=== PATIENT | female | born 1940 | race Caucasian/White ===

== ENCOUNTER 2019-10-22 09:34 | Outpatient (CLI) | payer MEDICARE, OTHER, SELFPAY ==
--- NOTE | 2019-10-22 09:43 | MM_ITS ---
WS: [id number] BILATERAL DIGITAL SCREENING MAMMOGRAPHY WITH CAD CLINICAL INFORMATION: SCREENING HISTORY: Screening mammogram. No current complaints. COMPARISON: TECHNIQUE: Bilateral CC and MLO views. FINDINGS: The breasts are composed of heterogeneous fibroglandular density tissue, which can limit the detectio n of small underlying mass lesions. No suspicious mass, asymmetry, calcifications, or architectural d istortion. No evidence of malignancy. Punctate and lucent calcifications. Vascular calcification. MM/[id number] IMPRESSION: BI-RADS: 2-Benign FOLLOW UP: 1 Year Follow-up Recommend return to annual screening mammography.
== END 2019-10-22 09:35 | disposition home or self-care (01) ==
LOC: RADSHAW 09:41
PROVIDERS: PCP Physician Assistant; Visit Provider Physician Assistant
DX: Z12.31 Encounter for screening mammogram for malignant neoplasm of breast (principal)
CPT/HCPCS: 77067

== ENCOUNTER 2020-11-24 10:34 | Outpatient (CLI) | payer MEDICARE, OTHER, SELFPAY ==
--- NOTE | 2020-11-24 10:42 | MM_ITS ---
WS: [id number] BILATERAL SCREENING DIGITAL MAMMOGRAM WITH CAD HISTORY: SCREENING COMPARISON: 10/22/2019 and 10/17/2018 Bilateral CC and MLO views submitted. Computer aided detection analyzed. Breast composition: The breasts are heterogeneously dense, which may obscure small masses. No suspici ous masses, microcalcifications or architectural distortion. Benign calcifications in each breast. MM/[id number] IMPRESSION: BI-RADS: 2-Benign FOLLOW UP: 1 Year Follow-up
--- NOTE | 2020-11-24 11:25 | XR_ITS ---
WS: [id number] DEXA (DUAL ENERGY X-RAY ABSORPTIOMETRY) Bone mineral density was performed using a Jamplify machine. HISTORY: POST MENOPAUSAL COMPARISON: 09/25/2017 Lumbar spine BMD (L1-L4): 1.816 g/cm2 T score: 5.3 Z score: 6.7 Total hip BMD: Left: 0.889 g/cm2. T score: -0.9 Z score: 0.9 Right: 0.856 g/cm2. T score: -1.2 Z score: 0.6 10 year probability of a major osteoporotic fracture is 20%. Compared to the prior study from 09/25/2017. Lumbar spine bone mineral density has decreased by 0.8%. Bilateral hips bone mineral density has decreased by 2.2%. XR/XR DEXA axial skeleton* [id number] IMPRESSION: OSTEOPENIA based upon the WHO classification for females. Significant decrease in bone mineral density within the hips since the prior .
== END 2020-11-24 10:35 | disposition home or self-care (01) ==
LOC: RADSHAW 10:41
PROVIDERS: PCP Physician Assistant; Visit Provider Physician Assistant
DX: Z12.31 Encounter for screening mammogram for malignant neoplasm of breast (principal); Z78.0 Asymptomatic menopausal state; M85.88 Other specified disorders of bone density and structure, other site
CPT/HCPCS: 77067; 77080

== ENCOUNTER → 2021-10-21 08:52 | Outpatient (BNVA) | payer MEDICARE, OTHER, SELFPAY | PROVIDERS: PCP Physician Assistant; Visit Provider Nurse Practitioner Family | DX: I25.10 Atherosclerotic heart disease of native coronary artery without angina pectoris (principal) | CPT/HCPCS: 99213 ==

== ENCOUNTER 2021-11-26 10:08 | Outpatient (CLI) | payer MEDICARE, OTHER, SELFPAY ==
--- NOTE | 2021-11-26 10:19 | MM_ITS ---
WS: [id number] Bilateral screening 3D tomosynthesis digital mammogram, 11/26/2021 Clinical Data: SCREENING Comparison: 11/24/2020, 10/22/2019, 10/17/2018, 09/25/2017, 09/21/2016, 09/18/2015, 09/08/2014, 03/09/2011. Findings: The breast parenchymal pattern shows heterogeneous density. No spiculated masses or clustered calcifi cations are seen. There are no secondary signs of carcinoma. MM/[place] [id number] Impression: 1. Negative bilateral mammogram unchanged. 2. Recommend annual screening mammograms. BIRADS: 1-Negative FOLLOW UP: 1 Year Follow-up The CAD sample checker was used.
== END 2021-11-26 10:09 | disposition home or self-care (01) ==
LOC: RAD 10:11
PROVIDERS: PCP Physician Assistant; Visit Provider Physician Assistant
DX: Z12.31 Encounter for screening mammogram for malignant neoplasm of breast (principal)
CPT/HCPCS: 77063; 77067

== ENCOUNTER 2022-05-21 15:07 | Emergency (ER) | payer MEDICARE, OTHER, SELFPAY ==
[2022-05-21 15:10] VITALS: BP 219/71; PULSE 85; RESP 18; TEMP 36.7; O2SAT 97
--- NOTE | 2022-05-21 15:16 | XRR_ITS ---
PROCEDURE INFORMATION: Exam: XR Chest Exam date and time: 05/21/2022 3:44 PM Age: 82 years old Clinical indication: Patient HX: PT C/O chest pain; Additional info: Cp TECHNIQUE: Imaging protocol: Radiologic exam of the chest. Views: 1 view. COMPARISON: CR XR chest 2V* [id number] 12/20/2018 10:21 AM FINDINGS: Lungs: Unremarkable. No consolidation. Pleural spaces: Unremarkable. No pleural effusion. No pneumothorax. Heart/Mediastinum: Possible mild cardiomegaly. Vasculature: Calcified plaque in the thoracic aorta similar to the prior study. Bones/joints: Unremarkable. XR/XR chest 1V portable [id number] IMPRESSION: Possible mild cardiomegaly.Heart size not optimally evaluated with a single AP view of the chest.
--- NOTE | 2022-05-21 15:16 | ED_ITS ---
HPI - Chest Pain General: Chief Complaint: Chest Pain Stated Complaint: UC sent for high BP, chest tightness Time Seen by Provider: 05/21/22 15:16 History of Present Illness: Ms. Meier is an 82-year-old lady with history of CAD, thyroid disorder, GERD presented to the emergency department for chest discomfort and generalized malaise. She reports onset of symptoms yesterday during exertion. She describes just a fullness or discomfort in her chest and epigastric region associated with generalized unwellness. Overall course of symptoms symptoms persisted. Denies other focal infectious symptoms. No other specific changes in health, exacerbating, or alleviating factors identified. Onset (ago): day(s) Timing of current episode: constant Onset: during exertion Pain location: substernal Pain radiation: abdomen Severity: moderate Quality: other Relieving factors: nothing Exacerbating factors: nothing Associated symptoms: Reports other Review of Systems General: Reports: 10 or more systems reviewed and unremarkable except in HPI and below PFSH ED PFSH: Medical History Abnormal stress test CAD (coronary artery disease) GERD (gastroesophageal reflux disease) Hypothyroidism Family History Other Cancer Diabetes Family history of cardiomegaly Stroke Social History Smoking and tobacco status: former smoker Alcohol intake: current Alcohol intake frequency: holidays/special occasions only Physical Exam Const: COMMON NORMALS: alert GENERAL APPEARANCE: cooperative and well developed HENMT: COMMON NORMALS: normocephalic and atraumatic HEAD & SCALP: normocephalic and atraumatic Eye: COMMON NORMALS: conjunctivae normal CONJUNCTIVA: Yes conjunctivae normal SCLERA: sclerae normal Neck/C-Spine: COMMON NORMALS: supple GENERAL: Yes trachea midline Resp: COMMON NORMALS: clear to auscultation bilaterally EFFORT & INSPECTION: Yes able to speak in complete sentences AUSCULTATION: clear to auscultation bilaterally Cardio: COMMON NORMALS: regular rate and regular rhythm RATE: regular rate RHYTHM: regular rhythm GI: COMMON NORMALS: Soft to palpation PALPATION: Yes Soft to palpation and No Tenderness to palpation present (GI) Extremity: GENERAL: Yes normal exam except as noted and No edema Neuro: COMMON NORMALS: moves all extremities SENSORIUM/ORIENTATION: Yes a lert and No Orientation impaired Psych: COMMON NORMALS: mental status grossly normal and Normal thought process present THOUGHT PROCESS: Normal thought process present Course 2 Vital Signs: Vital signs: Vital Signs Temperature 98.1 F 05/21/22 15:10 Pulse Rate 89 05/21/22 18:30 Respiratory Rate 16 05/21/22 17:45 Blood Pressure 165/57 05/21/22 18:30 Pulse Oximetry 97 05/21/22 18:30 Oxygen Delivery Me thod 05/21/22 18:30 MDM - Chest Pain Medical Decision Making 82-year-old lady presenting with epigastric and chest discomfort. Nontoxic on exam. EKG demonstrates sinus rhythm with first-degree AV block, normal axis, no STEMI. Labs with no significant hematologic abnormalities but mild hyponatremia and dehydration metabolic panel. Negative range 2-hour delta troponin. No UTI. Chest x-ray with no lobar consolidation or pneumothorax. Patient treated with fluids, Toradol, aspirin and feels improved. Most likely etiology of symptoms is dehydration and unspecified chest pain. The results of ED evaluation were discussed with the patient including possible disposition options. I discussed risk stratification by heart score and e stimated risk of major adverse cardiac events. The patient wishes to proceed with outpatient management. I discussed prescriptions and/or symptomatic cares (if applicable) including appropriate and responsible use, followup plan, and return precautions. The patient verbalized understanding and felt safe for discharge. Medical Records I reviewed the patient's medical records. Lab Data I reviewed the patient's lab results. 05/21/22 15:35 05/21/22 15:35 Radiology Impressions Chest X-Ray 05/21/22 15:16 IMPRESSION: Possible mild cardiomegaly.Heart size not optimally evaluated with a single AP view of the chest. Laboratory Results WBC 6.5 10^3/uL (4.0-10.0) 05/21/22 15:35 RBC 3.94 10^6/uL (4.1-5.3) L 05/21/22 15:35 Hgb 12.6 g/dL (11.5-15.3) 05/21/22 15:35 Hct 39.2 % (37.0-47.0) 05/21/22 15:35 MCV 99.5 fl (81-99) H 05/21/22 15:35 MCH 32.0 pg (28.0-34.0) 05/21/22 15:35 MCHC 32.1 g/dL (30.0-36.0) 05/21/22 15:35 RDW 12.7 % (12.1-15.1) 05/21/22 15:35 Plt Count 201 10^3/cmm (130-400) 05/21/22 15:35 MPV 10.7 fL (7.4-10.4) H 05/21/22 15:35 Neut % (Auto) 49.8 % 05/21/22 15:35 Lymph % (Auto) 36.1 % 05/21/22 15:35 [place] % (Auto) 11.3 % 05/21/22 15:35 Eos % (Auto) 2.1 % 05/21/22 15:35 Baso % (Auto) 0.5 % 05/21/22 15:35 Neut # (Auto) 3.26 10^3/uL (1.8-7.7) 05/21/22 15:35 Lymph # (Auto) 2.4 10^3/uL (0.8-4.8) 05/21/22 15:35 [place] # (Auto) 0.7 10^3/uL (0.2-0.9) 05/21/22 15:35 Eos # (Auto) 0.1 10^3/uL (0.0-0.8) 05/21/22 15:35 Baso # (Auto) 0.0 10^3/uL (0.0-0.1) 05/21/22 15:35 Nucleated RBC % (auto) 0 % 05/21/22 15:35 Nucleated RBCs # 0.0 /100WBC 05/21/22 15:35 Sodium 129 mmol/L (136-145) L 05/21/22 15:35 Potassium 4.1 mmol/L (3.5-5.1) 05/21/22 15:35 Chloride 92 mmol/L (98-107) L 05/21/22 15:35 Carbon Dioxide 24 mmol/L (22-29) 05/21/22 15:35 Anion Gap 17.1 (5-19) 05/21/22 15:35 BUN 26 mg/dL (8-23) H 05/21/22 15:35 Creatinine 1.0 mg/dL (0.5-0.9) H 05/21/22 15:35 GFR Calculation Not Reportable 05/21/22 15:35 Glucose 110 mg/dL (65-115) 05/21/22 15:35 Calculated Osmolality 273 mOsm/kg (285-295) L 05/21/22 15:35 Calcium 9.7 mg/dL (8.5-10.5) 05/21/22 15:35 Total Bilirubin 0.2 mg/dL (0.15-1.2) 05/21/22 15:35 AST 23 U/L (0-32) 05/21/22 15:35 ALT 20 U/L (0-33) 05/21/22 15:35 Alkaline Phosphatase 72 U/L (35-105) 05/21/22 15:35 Troponin T Baseline 10 ng/L (0-10) 05/21/22 15:35 Troponin T 120 Minute 11.87 ng/L (0-10) H 05/21/22 17:25 Delta Troponin T 1.87 ABS# (0-10) 05/21/22 17:25 NT-Pro-B Natriuret Pep 237 pg/mL (0-450) 05/21/22 15:35 Total Protein 6.8 g/dL (6.6-8.7) 05/21/22 15:35 Albumin 4.3 g/dL (3.5-5.2) 05/21/22 15:35 Globulin 2.5 g/dL (1.3-4.6) 05/21/22 15:35 Lipase 48 U/L (13-60) 05/21/22 15:35 TSH 4.54 uIU/mL (0.27-4.20) H 05/21/22 15:35 Free T4 1.54 ng/dL (0.82-1.77) 05/21/22 17:25 Urine Color Yellow (Yellow) 05/21/22 17:36 Urine Appearance Clear (CLEAR) 05/21/22 17:36 Urine pH 6 (5-7) 05/21/22 17:36 Ur Specific Streeter 1.010 (1.005-1.030) 05/21/22 17:36 Urine Protein Neg (Negative) 05/21/22 17:36 Urine Glucose (UA) Norm (Normal) 05/21/22 17:36 Urine Ketones Negative (Negative) 05/21/22 17:36 Urine Blood Neg (Negative) 05/21/22 17:36 Urine Nitrate Negative (Negative) 05/21/22 17:36 Urine Bilirubin Neg (Negative) 05/21/22 17:36 Urine Urobilinogen Norm mg/dL (Negative) 05/21/22 17:36 Ur Leukocyte Esterase 1+ (Negative) H 05/21/22 17:36 Urine RBC None /hpf (0-2) 05/21/22 17:36 Urine WBC 5-10 /hpf (0-5) H 05/21/22 17:36 Ur Squamous Epith Cells Rare /hpf (0-5) 05/21/22 17:36 Amorphous Sediment Not Reportable 05/21/22 17:36 Urine Bacteria Trace /hpf (NONE) 05/21/22 17:36 Influenza Type A Ag negative (Negative) 05/21/22 15:47 Influenza Type B Ag negative (Negative) 05/21/22 15:47 SARS-CoV-2 Ag (Rapid) negative (Negative) 05/21/22 15:47 Discharge Plan Discharge Patient Disposition: Home Clinical Impression: Chest discomfort, Malaise and fatigue Condition: Stable Prescriptions: No Action levothyroxine 50 mcg tablet 50 mcg PO DAILY multivitamin Tablet 1 tab PO DAILY paroxetine HCl 20 mg tablet 10 mg PO DAILY diclofenac sodium 75 mg tablet,delayed release (DR/EC) 75 mg PO BID nitroglycerin 0.4 mg tablet, sublingual 0.4 mg SUBLINGUAL Q5M PRN (Reason: chest pain) Qty: 25 3RF Rx Instructions: do not exceed 3 doses per episode omeprazole 20 mg capsule,delayed release(DR/EC) 1 cap PO DAILY Cbd Gummies 1 gum PO DAILY Rx Instructions: Patient is trying this med Adult Low Dose Aspirin 81 mg tablet,delayed release (DR/EC) 162 mg PO DAILY Calcium 500 500 mg calcium (1,250 mg) Tablet 500 mg PO DAILY ProAir HFA 90 mcg/actuation HFA aerosol inhaler 2 inh INHALATION QID PRN (Reason: shortness of breath or wheezing) Discharge Orders: Discharge ED (Routine); Ordered 05/21/22 Ordered By: Vladislav Duarte Referrals: Brigida Fontaine PA [Primary Care Provider] - Discharge Diet: Usual diet Discharge Activity: Resume usual activity Patient Instructions: Chest Pain (ED), Dehydration (ED), Hyponatremia (ED) Activity Restrictions/Additional Instructions: Thank you for visiting the emergency department. You were seen and evaluated for generalized unwellness with chest discomfort. The exact cause of your symptoms is unclear as discussed. I will message case management for outpatient testing. Please ensure that you are staying hydrated. Return to the emergency department for worsening symptoms or anything else that you are concerned about and feel needs emergency department evaluation. Coding Level of Care Code ED Editor Publications for [facility] [employer]
--- NOTE | 2022-05-21 15:21 | ECG_ITS ---
[facility] Test Date: 2022-05-21 Pat Name: Keisha Meier Department: Room: Gender: Female Mysql Database Administrator: : 1940 Requested By: Vladislav Duarte Order Number: [id number] Arnie MD: Bri Vogel M.D. Measurements Intervals [place] Rate: 69 P: 54 NH: 219 QRS: 42 QRSD: 92 T: 67 QT: 383 QTc: 412 Interpretive Statements SINUS RHYTHM WITH FIRST DEGREE AV BLOCK POSSIBLE ANTERIOR MYOCARDIAL INFARCTION , OF INDETERMINATE AGE [30 ms Q WAVE IN V3/V4, OR R < 0.2 mV IN V4] INTERPRETATION BASED ON A DEFAULT AGE OF 40 YEARS No previous ECG available for comparison Electronically Signed On 05-21-2022 19:32:46 POT PUNCHER by Bri Vogel M.D. [email or web address] medical centerCodaMationbrecksville va [facility].TargetX/store/NU/[id number] f
[2022-05-21] MEDS: aspirin 81 mg Chew Tablet 324 MG PO (15:41)
[2022-05-21 15:55] VITALS: BP 182/64; PULSE 71; RESP 16; O2SAT 99
[2022-05-21 16:18] LABS: Basophils % 0.5 %; Eosinophils # 0.1 10^3/uL (0.0-0.8); Eosinophils % 2.1 %; Hematocrit 39.2 % (37.0-47.0); Hemoglobin 12.6 g/dL (11.5-15.3); Lymphocytes # 2.4 10^3/uL (0.8-4.8); Lymphocytes % 36.1 %; Mean Corpuscular HGB Conc 32.1 g/dL (30.0-36.0); Mean Corpuscular Volume 99.5 fl (81-99); Mean Platelet Volume 10.7 fL (7.4-10.4); Monocytes # 0.7 10^3/uL (0.2-0.9); Monocytes % 11.3 %; Neutrophils # 3.26 10^3/uL (1.8-7.7); Neutrophils % 49.8 %; Nucleated Red Blood Cells % 0 %; Platelet Count 201 10^3/cmm (130-400); Red Blood Count 3.94 10^6/uL (4.1-5.3); Red Cell Distribution Width 12.7 % (12.1-15.1); White Blood Count 6.5 10^3/uL (4.0-10.0)
[2022-05-21 16:24] VITALS: BP 161/54; PULSE 70; O2SAT 98
[2022-05-21 16:31] LABS: Influenza A by IFA negative (Negative); Influenza B by IFA negative (Negative); SARS Covid-2 Antigen negative (Negative)
[2022-05-21 16:48] LABS: Troponin(5th) Baseline 10 ng/L (0-10)
[2022-05-21 16:56] LABS: Alanine Aminotransferase 20 U/L (0-33); Albumin Level 4.3 g/dL (3.5-5.2); Alkaline Phosphatase 72 U/L (35-105); Anion Gap 17.1 (5-19); Aspartate Amino Transferase 23 U/L (0-32); Blood Urea Nitrogen 26 mg/dL (8-23); Calcium 9.7 mg/dL (8.5-10.5); Carbon Dioxide 24 mmol/L (22-29); Chloride 92 mmol/L (98-107); Globulin 2.5 g/dL (1.3-4.6); Glucose 110 mg/dL (65-115); Lipase 48 U/L (13-60); NT Pro B Type Natriuretic Pept 237 pg/mL (0-450); Osmolality Calculated 273 mOsm/kg (285-295); Potassium 4.1 mmol/L (3.5-5.1); Sodium 129 mmol/L (136-145); Thyroid Stimulating Hormone 4.54 uIU/mL (0.27-4.20); Total Bilirubin 0.2 mg/dL (0.15-1.2); Total Protein 6.8 g/dL (6.6-8.7)
--- NOTE | 2022-05-21 17:16 | ECG_ITS ---
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 Measurements Intervals [place] Rate: 66 P: 59 AL: 228 QRS: 54 QRSD: 91 T: 66 QT: 380 QTc: 400 Interpretive Statements SINUS RHYTHM WITH FIRST DEGREE AV BLOCK LOW QRS VOLTAGE IN PRECORDIAL LEADS [QRS DEFLECTION < 1.0 mV IN CHEST LEADS] Compared to ECG 05/21/2022 15:21:34 Low QRS voltage now present Myocardial infarct finding no longer present Electronically Signed On 05-21-2022 19:40:11 ORANGE GROWER by Bri Vogel M.D. [email or web address] hospitalAdisnmercy [facility].3rdKind/store/OM/[id number]
[2022-05-21] MEDS: sodium chloride 0.9% 1,000 ML 999 ML IV (17:21)
[2022-05-21] MEDS: ketorolac 30 mg/mL INJ 15 MG IVP (17:21)
[2022-05-21 17:45] VITALS: BP 172/62; PULSE 72; RESP 16; O2SAT 98
[2022-05-21 18:02] LABS: Urine Color Yellow (Yellow)
[2022-05-21 18:03] LABS: Add Urine Culture? No; Add Urine Microscopic? YES; Bacteria Urine TRACE /hpf; Bilirubin Urine Neg (Negative); Blood Urine Neg (Negative); Glucose Urine UA Norm (Normal); Ketones Urine Negative (Negative); Leukocyte Esterase Urine 1+ (Negative); Nitrate Urine Negative (Negative); Protein Urine Neg (Negative); Squamous Epithelial Cell Urine RARE /hpf (0-5); Urine Appearance Clear (CLEAR); Urobilinogen Urine Norm (Negative); pH Urine 6 (5-7)
[2022-05-21 18:04] LABS: Troponin 5 2HR 11.87 ng/L (0-10)
[2022-05-21 18:06] LABS: Troponin 5 2HR Delta 1.87 ABS# (0-10)
[2022-05-21 18:30] VITALS: BP 165/57; PULSE 89; O2SAT 97
[2022-05-22 01:10] LABS: Free T4 Free Thyroxine 1.54 ng/dL (0.82-1.77)
--- NOTE | 2022-05-24 08:51 | DCPLANNER ---
Addendum entered by Tatiana Olivera 07/15/22 10:58: Patient had an echo and a stress test scheduled - patient did attend both appointments. Addendum entered by Tatiana Olivera 06/15/22 11:09: Patient has an echo scheduled for Monday, June 20, 2022 at 8:15 Original Note: e business project manager had message to schedule an outpatient stress test for patient. e business project manager sent faxed signed order to centralized scheduling, who will call patient with appointment information.
== END 2022-05-21 19:08 | disposition home or self-care (01) ==
PROVIDERS: Emergency Provider Emergency Medicine; PCP Physician Assistant
DX: R07.89 Other chest pain (principal); R53.81 Other malaise; R53.83 Other fatigue; Z79.82 Long term (current) use of aspirin; Z20.822 Contact with and (suspected) exposure to COVID-19; I25.10 Atherosclerotic heart disease of native coronary artery without angina pectoris; Z87.891 Personal history of nicotine dependence
CPT/HCPCS: 71045; 80053; 81001; 83690; 83880; 84439; 84443; 84484; 85025; 87426; 87804; 93005; 96361; 96374; 99285; J1885; J7030

== ENCOUNTER 2022-06-30 07:53 | Outpatient (CLI) | payer MEDICARE, OTHER, SELFPAY ==
--- NOTE | 2022-06-30 08:06 | USCV_ITS ---
Renea Keisha Age: 82 Gender: F : 1940 Exam Date: 06/30/2022 08:37 Ordering Phys: Ethan Fragoso DO Technologist: ALINE [place] [facility] [place]: chest pain BP: 136 / 68 HR: 72 Rhythm: Sinus Technical Quality: Adequate MEASUREMENTS (Male / Female) Normal Values 2D ECHO LV Diastolic Diameter PLAX 4.5 cm 4.2 - 5.9 / 3.9 - 5.3 cm LV Systolic Diameter PLAX 2.4 cm IVS Diastolic Thickness 0.9 cm 0.6 - 1.0 / 0.6 - 0.9 cm IVS Systolic Thickness 1.0 cm LVPW Diastolic Thickness 1.3 cm 0.6 - 1.0 / 0.6 - 0.9 cm LVPW Systolic Thickness 1.3 cm LVOT Diameter 2.0 cm LV Ejection Fraction 2D Teich 77.8 % LV Ejection Fraction MOD 2C 64.9 % LV Ejection Fraction 2C AL 66.6 % LA Diameter 3.2 cm LA Width 4.0 cm LA Height 4.5 cm RA Width 2.8 cm RA Height 4.6 cm Aorta at Sinotubular Diameter 2.4 cm IVC Diameter 1.4 cm M-MODE Aortic Annulus Diameter 2.5 cm LA Ao Ratio MM 1.2 MV E Point Septal Separation 0.5 cm DOPPLER AV Peak Velocity 119.0 cm/s LVOT Peak Velocity 104.0 cm/s AV Area Cont Eq vti 3.3 cm squared AV Area Cont Eq pk 2.8 cm squared MV Peak Velocity 126.0 cm/s MV Area PHT 5.8 cm squared Mitral E to A Ratio 0.9 MV E' Velocity 49.0 cm/s Mitral E to MV E' Ratio 10.1 Mitral E to LV E' Lateral Ratio 9.8 Mitral E to LV E' Septal Ratio 10.6 TR Peak Velocity 242.5 cm/s TR Peak Gradient 23.5 mmHg TR Mean Velocity 186.5 cm/s TR Mean Gradient 15.8 mmHg TR Velocity Time Integral 56.2 cm Right Atrial Pressure 3.0 mmHg Pulmonary Artery Systolic Pressu 26.5 mmHg PV Peak Velocity 93.3 cm/s RV Acceleration Time 0.1 s RV Ejection Time 0.3 s RV AcT/ET 0.3 FINDINGS Left Ventricle Normal in size. LV systolic function is normal with EF of 55 to 60%. No regional wall motion abnormalities are seen. Grade 1 diastolic dysfunction Right Ventricle Normal in size and function Right Atrium Normal in size Left Atrium Normal in size Mitral Valve Structurally normal mitral valve. Mild mitral regurgitation. Aortic Valve Structurally normal aortic valve. No significant stenosis or regurgitation. Tricuspid Valve Mild tricuspid regurgitation. Pulmonary artery systolic pressure is normal. Pulmonic Valve Not well-visualized. Mild pulmonic regurgitation. Pericardium Normal Aorta Normal in size IVC Appears to be normal CONCLUSIONS LV systolic function is normal with EF of 55-60% Grade 1 diastolic dysfunction Mild mitral regurgitation Mild tricuspid regurgitation Mild pulmonic regurgitation Compared to prior echocardiogram from 2019, no significant changes are noted. Juan Carlos Christensen MD (Electronically Signed) Final Date: 30 June 2022 18:08 S
== END 2022-06-30 07:54 | disposition home or self-care (01) ==
LOC: RAD 07:56
PROVIDERS: PCP Physician Assistant; Visit Provider Family Medicine
DX: R07.9 Chest pain, unspecified (principal); I08.1 Rheumatic disorders of both mitral and tricuspid valves
CPT/HCPCS: 93306

== ENCOUNTER 2022-07-14 07:16 | Outpatient (CLI) | payer MEDICARE, OTHER, SELFPAY ==
--- NOTE | 2022-07-14 | ECG_ITS ---
[facility] Test Date: 2022-07-14 Pat Name: Keisha Meier Department: Room: Gender: Female Historical Records Administrator: Chelly Madsen : 1940 Requested By: Ethan Amaral Order Number: [id number] Arnie MD: Bri Vogel M.D. Interpretive Statements NAME OF STUDY: LEXISCAN SESTAMIBI STRESS TEST INDICATION: Chest Pain, PROCEDURE: At the baseline, the EKG revealed normal sinus rhythm with a first-degree AV block. Poor R wave progression. Nonspecific IVCD. The baseline heart was bpm with a blood pressue of mm of Hg Lexiscan was infused over a period of 20 seconds. A total of 0.4 milligrams of Lexiscan was infused. The stress phase was continued for a total of 5 minutes. Heart rate at the end of the stress phase was 86 bpm with a blood pressure 119/69 mm of Hg. The EKG at the peak infusion revealed no significant changes. Sestamibi was injected 20 seconds after the Lexiscan infusion. Heart rate at the end of the recovery phase was 82 bpm with a blood pressure of 156/52 mm of Hg. CONCLUSION: 1. No significant EKG changes with the LexiScan infusion 2. No LexiScan induced chest pain or cardiac arrhythmia 3. Normal blood pressure and heart rate response 4. Sestamibi/sestamibi perfusion scan pending; see separate report. Electronically Signed On 07-17-2022 17:15:48 CDT by Bri Vogel M.D. [email or web address]AB[employer] Language Servicestuscarawas hospital.[employer]/store/OM/[id number]
[2022-07-14 08:08] VITALS: BMI 34.2
--- NOTE | 2022-07-14 08:09 | NMCV_ITS ---
NM maria d perf SPECT r/s* [id number] Keisha Meier Age: 82 Gender: F : 1940 Exam Date: 07/14/2022 08:54 Ordering Phys: Ethan Fragoso DO Technologist: FLAVIO Luong Exam [facility]: [facility] Indications: CHEST PAIN STRESS TEST Please see separate stress test report in [facility] for full findings IMAGE PROTOCOL Rest/Stress 1 Lexiscan Day Radiopharmaceutical Dose (mCi) Administration Site Administered by Rest: Tc-99m 10.9 IV FLAVIO Meyers Sestamibi Stress:Tc-99m 32.4 IV FLAVIO Meyers Sestamibi Rest: 14-Jul-2022 60 Discovery 630 Stress: 14-Jul-2022 30 Discovery 630 0.4mg Lexiscan. Supine position only as patient was unable to lay prone. SPECT RESULTS Technical Quality: Excellent Raw Data Analysis: Normal Image Corrections: No attenuation or motion correction applied Summed Stress Score: 0 Summed Rest Score: 1 Summed Difference Score: 0 PERFUSION FINDINGS Fairly uniform myocardial tracer uptake. No significant perfusion abnormalities were noted. FUNCTIONAL RESULTS (calculated via Gated SPECT) Stress Image LV EF (%): 77 Stress EDV (mL):60 TID: 0.94 Stress ESV (mL):14 FUNCTIONAL FINDINGS: Segmental wall motion analysis revealing no gross wall motion abnormalities IMPRESSIONS 1. Unremarkable Myocardial perfusion imaging 2. Normal LV ejection fraction of 77%. 3. LV wall motion analysis revealing no gross wall motion abnormalities. 4. Normal LV volume. Low probability for coronary ischemia, based on the above findings Dr Bri Vogel MD [facility] (Electronically Signed) Final Date: 14 July 2022 18:45 S
[2022-07-14] MEDS: regadenoson 0.4 Mg/5 ml Syringe IVP (09:45)
[2022-07-14 10:15] VITALS: BP 156/52; PULSE 78
== END 2022-07-14 07:17 | disposition home or self-care (01) ==
LOC: CDL 07:20
PROVIDERS: Family Provider Internal Medicine Cardiovascular Disease; PCP Physician Assistant; Visit Provider Family Medicine
DX: R07.9 Chest pain, unspecified (principal)
CPT/HCPCS: 36415; 78452; 93017; 96374; A9500; J2785

== ENCOUNTER → 2022-10-19 15:19 | Outpatient (BNVA) | payer MEDICARE, OTHER, SELFPAY | PROVIDERS: Family Provider Internal Medicine Cardiovascular Disease; PCP Physician Assistant; Visit Provider Internal Medicine Cardiovascular Disease | DX: R06.09 Other forms of dyspnea (principal); I25.10 Atherosclerotic heart disease of native coronary artery without angina pectoris; Z87.891 Personal history of nicotine dependence | CPT/HCPCS: 99214 ==

== ENCOUNTER → 2023-11-03 10:33 | Outpatient (BNVA) | payer MEDICARE, SELFPAY | PROVIDERS: PCP Physician Assistant; Visit Provider Internal Medicine Cardiovascular Disease | DX: I25.10 Atherosclerotic heart disease of native coronary artery without angina pectoris (principal); I10 Essential (primary) hypertension; Z87.891 Personal history of nicotine dependence | CPT/HCPCS: 99213 ==

== ENCOUNTER → 2024-11-04 14:10 | Outpatient (BNVA) | payer MEDICARE, SELFPAY | PROVIDERS: PCP Physician Assistant; Visit Provider Internal Medicine | DX: I25.10 Atherosclerotic heart disease of native coronary artery without angina pectoris (principal); I10 Essential (primary) hypertension | CPT/HCPCS: 99214 ==